=== PATIENT | male | born 1955 | race Caucasian/White ===

== ENCOUNTER 2020-03-30 00:16 | Emergency (ER) | payer MEDICARE ==
[~2020-03-30] VITALS: Ht 198.1 cm; Wt 77.1 kg
== END 2020-03-30 01:14 | disposition home or self-care (01) ==
LOC: ED 00:16
DX: T67.5XXA Heat exhaustion, unspecified, initial encounter (principal); F17.200 Nicotine dependence, unspecified, uncomplicated; X30.XXXA Exposure to excessive natural heat, initial encounter
CPT/HCPCS: 99284